=== PATIENT | female | born 1945 | race Two or more races ===

== ENCOUNTER 2018-01-29 20:48 | Emergency (ER) | payer MEDICAID, OTHER ==
[~2018-01-29] VITALS: Ht 162.6 cm; Wt 96.8 kg
[~2018-01-29 20:48] MED LIST: ASPI-1159 PO; ATEN-42 PO; BUPR100T6 PO; CLON0.5T12 MT; CYAN25006 SL; INSULIN SQ; LISI40TA4 MT; MELA10CA PO; OLOP5DRO14 OP; OXYB5TAB PO; PANT20TA3 MT; POTA10TA2 MT; SIMV20TA6 MT; VENL150C52 PO; [UNRECOGNIZED DRUG - OTHER]
[2018-01-29] MEDS ORDERED: SODIUM CHLORIDE 0.9% 1,000 ML IV ONE (22:50)
[2018-01-29] MEDS ORDERED: QUETIAPINE FUMARATE 100MG TABLET PO SCH (23:00)
[2018-01-29] MEDS ORDERED: HALOPERIDOL LACTATE 5MG/ML VIAL IM ONE (23:00)
[2018-01-29 23:48] LABS: BASOPHILS % 0.4 % (0.0-2.0); EOSINOPHILS % 0.9 % (0.0-5.0); HEMATOCRIT. 35.2 % (36.0-48.0); HEMOGLOBIN. 11.9 g/dL (12.0-16.0); LYMPHOCYTES % 15.7 % (20.0-50.0); MEAN PLATELET VOLUME 9.5 fl (7.4-10.4); MONOCYTES % 11.1 % (2.0-8.0); NEUTROPHILS % 71.9 % (40.0-76.0); PLATELET 207 x1000/uL (130-400); RED CELL DISTRIBUTION WIDTH 14.8 % (11.6-14.6)
[2018-01-29 23:53] LABS: CHLORIDE 108 mEq/L (98-107)
[2018-01-29 23:54] LABS: INR 1.1; PROTHROMBIN TIME 10.6 sec (9.1-11.1)
[2018-01-30 01:55] LABS: CLARITY URINE CLEAR (CLEAR); COLOR URINE YELLOW (YELLOW); KETONES URINE NEGATIVE (NEGATIVE); LEUKOCYTE ESTERASE URINE 1+ (NEGATIVE); NITRITE URINE NEGATIVE (NEGATIVE); OCCULT BLOOD URINE NEGATIVE (NEGATIVE); PROTEIN URINE NEGATIVE (NEGATIVE); SPECIFIC GRAVITY URINE 1.016 (1.005-1.030); UROBILINOGEN URINE 0.2 E.U./dL (0.2-1.0)
[2018-01-30 03:10] VITALS: BP 124/61
== END 2018-01-30 03:25 | disposition short-term general hospital (02) ==
LOC: ER 20:48
DX: G93.40 Encephalopathy, unspecified (principal); F03.90 Unspecified dementia, unspecified severity, without behavioral disturbance, psychotic disturbance, mood disturbance, and anxiety; E86.0 Dehydration; N28.9 Disorder of kidney and ureter, unspecified; E78.00 Pure hypercholesterolemia, unspecified; E11.9 Type 2 diabetes mellitus without complications; I10 Essential (primary) hypertension; I25.2 Old myocardial infarction; Z86.73 Personal history of transient ischemic attack (TIA), and cerebral infarction without residual deficits; Z88.0 Allergy status to penicillin; Z79.899 Other long term (current) drug therapy
CPT/HCPCS: 36415; 70450; 71045; 80053; 81003; 82962; 85025; 85610; 93005; 96360; 96361; 96372; 99285; J1630; J7030